=== PATIENT | male | born 1960 | race Caucasian/White ===

== ENCOUNTER 2020-08-22 02:43 | Outpatient (CLI) | payer BC, SELFPAY ==
[2020-08-22 19:51] LABS: SARS-CoV-2 RNA PCR Negative
== END 2020-08-22 02:44 | disposition home or self-care (01) ==
LOC: ANHCOVIDDT 02:43
PROVIDERS: PCP Family Medicine; Visit Provider Internal Medicine Gastroenterology
DX: Z01.812 Encounter for preprocedural laboratory examination (principal); Z20.828 Contact with and (suspected) exposure to other viral communicable diseases
CPT/HCPCS: 87635; C9803; U0003

== ENCOUNTER 2020-08-25 01:07 | Day surgery (SDC) | payer BC, SELFPAY ==
[2020-08-20 10:17] VITALS: BMI 25.8
--- NOTE | 2020-08-24 13:28 | WPDANESEPP ---
Anes - Eval Pre Procedure Procedure: Operation Date: 08/25/20 07:30 Proposed Procedures p Screening Colonoscopy - Dhiraj Angeles MD Date/Time: 08/24/20 13:28 Pre Op Diagnosis: Neoplasm Screening, Family Hx of Colon CA Patient Data Age: 60 Gender: M Height: 1.8 m Weight: 84 kg Allergies Allergy/AdvReac Type Severity Reaction Status Date / Time No Known Allergies Allergy Mild Verified 08/20/20 10:09 Home Medications Medication Instructions Recorded Confirmed Type No Home Medications 06/05/20 08/20/20 History Patient hx anesthesia problems: none Family hx anesthesia problems: none PMFSH Past Medical History Medical History Colon cancer screening Degenerative joint disease of knee Encounter for prostate cancer screening Encounter for wellness examination in adult Left knee pain Surgical History Surgical History H/O reconstruction of anterior cruciate ligament tear Family History Family History Other Family history of malignant neoplasm Social History Social History Smoking status: Former smoker Tobacco type: cigarettes Smoking end date: 10/10/03 Alcohol intake: current Substance use: never Substance use type: does not use Spiritual care concerns: No Exam Day of Procedure 08/24/20 13:28
[2020-08-25] MEDS: LACTATED RINGERS 1,000 ML 150 ML IV CONT (06:29)
[2020-08-25 06:30] VITALS: BP 135/91; PULSE 97; RESP 17; TEMP 36.6; O2SAT 97; BMI 26.2
--- NOTE | 2020-08-25 07:16 | P.PNAN_ITS ---
Anes - Initial Pre Proc Eval Procedure: Operation Date: 08/25/20 07:30 Proposed Procedures p Screening Colonoscopy - Dhiraj Angeles MD Date/Time: 08/25/20 07:16 Surgeon: Dhiraj Angeles MD Pre Op Diagnosis: Neoplasm Screening, Family Hx of Colon CA Patient Data Age: 60 Gender: M Height: 5 ft 11 in Weight: 85.2 kg Last Vital Signs Temp 97.9 F 08/25/20 06:30 Pulse 97 08/25/20 06:30 Resp 17 08/25/20 06:30 BP 135/91 H 08/25/20 06:30 Pulse Ox 97 08/25/20 06:30 Allergies Allergy/AdvReac Type Severity Reaction Status Date / Time No Known Allergies Allergy Mild Verified 08/25/20 06:21 Home Medications Medication Instructions Recorded Confirmed Type No Home Medications 06/05/20 08/25/20 History Patient hx anesthesia problems: none Family hx anesthesia problems: none PMFSH Past Medical History Medical History Colon cancer screening Degenerative joint disease of knee Encounter for prostate cancer screening Encounter for wellness examination in adult Left knee pain Surgical History Surgical History H/O reconstruction of anterior cruciate ligament tear Family History Family History Other Family history of malignant neoplasm Social History Social History Smoking status: Former smoker Tobacco type: cigarettes Smoking end date: 10/10/03 Alcohol intake: current Alcohol use details: WINE WITH DINNER Substance use: never Substance use type: does not use Living arrangements: with family Spiritual care concerns: No Anes - Eval Final PreProcedure Day of Procedure 08/25/20 07:16 Patient weight: normal Heart: regular rate and rhythm Lungs: clear to auscultation Airway: Mallampati scale class III Neurological: alert and oriented Last oral intake: >/= 8 hours ASA classification: II Emergent: no Anesthetic plan: proceed Anesthesia type and monitoring: general GIVS and standard monitoring Other findings: left upper eyelid slightly swollen Informed Consent: The patient's anesthetic plan and its attendant risks and tila efits were discussed with the patient/family/POA. Questions were solicited and answers provided to the satisfaction of the patient/family/POA.
--- NOTE | 2020-08-25 07:28 | WPDGICN ---
Assessment and Plan Assessment and plan (1) Family history of colon cancer in father: Code(s): Z80.0 - Family history of malignant neoplasm of digestive organs Status: Acute Assessment and Plan: Patient's father had colon cancer. His mother has had colon polyps. For this reason surveillance colonoscopy is advised now and at 5 year intervals in the future. High-fiber diet advised. Further recommendations will be given after endoscopy. GI Consult Note Consult date/time: 08/25/20 07:28 HPI: Vamsi Keita is a 60 year old male Seen in evaluation at the request of Dr. Jeronimo. Patient presents for screening colonoscopy. His current weight appetite bowel movements are normal. He denies any blood in his stools. He has no abdominal pain. Family history is significant his father had colon cancer. His mother had colon polyps. Review of Systems Review of Systems: All systems reviewed & are unremarkable except as noted in HPI and below PMFSH Past Medical History Medical History Colon cancer screening Degenerative joint disease of knee Encounter for prostate cancer screening Encounter for wellness examination in adult Left knee pain Surgical History Surgical History H/O reconstruction of anterior cruciate ligament tear Family History Family History Other Family history of malignant neoplasm Social History Social History Smoking status: Former smoker Tobacco type: cigarettes Smoking end date: 10/10/03 Alcohol intake: current Alcohol use details: WINE WITH DINNER Substance use: never Substance use type: does not use Living arrangements: with family Spiritual care concerns: No Meds Home Medications and Allergies Home Medications Medication Instructions Recorded Confirmed Type No Home Medications 06/05/20 08/25/20 History Allergies Allergy/AdvReac Type Severity Reaction Status Date / Time No Known Allergies Allergy Mild Verified 08/25/20 06:21 Vital Signs Vital Signs - 24 hr 08/25/20 06:30 Temperature 97.9 F Pulse Rate 97 Respiratory Rate 17 Blood Pressure 135/91 H Pulse Oximetry 97 Exam Narrative: Exam Narrative: Physical exam reveals Vital Signs to be stable. HEENT exam unremarkable. Lungs are clear to auscultation and percussion. Heart is without murmur or extra sounds. Abdominal exam bowel sounds are present soft nontender with no organomegaly. Digital external rectal exam is normal.
[2020-08-25 07:51] VITALS: BP 119/85; PULSE 84; RESP 22; O2SAT 97
[2020-08-25 08:01] VITALS: BP 130/87; PULSE 74; RESP 18; O2SAT 97
[2020-08-25 08:11] VITALS: BP 138/97; PULSE 75; RESP 20; O2SAT 98
== END 2020-08-25 08:36 | disposition home or self-care (01) ==
PROVIDERS: PCP Family Medicine; Visit Provider Internal Medicine Gastroenterology
PROC: 0DJD8ZZ Inspection of Lower Intestinal Tract, Via Natural or Artificial Opening Endoscopic (ICD-10-PCS; CPT 45378; principal; 2020-08-25 07:30)
DX: Z12.11 Encounter for screening for malignant neoplasm of colon (principal); K64.8 Other hemorrhoids; Z83.71 Family history of colonic polyps; Z80.0 Family history of malignant neoplasm of digestive organs; Z87.891 Personal history of nicotine dependence
CPT/HCPCS: 45378; J2704; J7120

== ENCOUNTER → 2021-10-02 01:08 | Outpatient (CLI) | payer BC, SELFPAY ==
[2021-10-02 19:19] LABS: SARS-CoV-2 RNA PCR Negative
== END ==
PROVIDERS: PCP Family Medicine; Visit Provider Nurse Practitioner Family
DX: R68.89 Other general symptoms and signs (principal); Z20.822 Contact with and (suspected) exposure to COVID-19
CPT/HCPCS: C9803; U0003; U0005

== ENCOUNTER 2023-08-19 09:43 | Outpatient (CLI) | payer MEDICARE, SELFPAY ==
--- NOTE | ~2023-08-19 | MR_ITS ---
MRI of the right knee Clinical history: Osteoarthritis Technique: Coronal proton density and proton density-weighted images, sagittal proton-density and T2 fat-sat images, and axial proton-density fat-saturated images were acquired. Findings: ACL is intact, with diffuse increased signal, compatible with mucoid degenerative change. P osterior cruciate ligament is intact. Medial collateral ligament and the lateral collateral ligament complex are intact. Popliteus tendon is intact. Possible horizontal tear of the anterior horn of the lateral meniscus. There is complex tearing of th e posterior horn and body of the medial meniscus, which are relatively diminutive. There is diffuse grade IV chondromalacia of the medial compartment. There is mild chondral thinning i n the lateral compartment. There is mild to moderate chondral malacia the medial patellar facet. Femo ral trochlear cartilage is preserved. Moderate tricompartment osteophytes are present. Extensor mechanism is intact. Moderate joint effusion present. No Ortega's cyst. Impression: Complex tearing of the posterior horn and body of the medial meniscus. Questionable horizontal tear of the anterior horn of the lateral meniscus. Mucoid degenerative change of the ACL. Moderate to advanced degenerative change of the medial compartment. Mild to moderate degenerative aleksandr nge of the lateral and patellofemoral compartment. Moderate joint effusion. Reviewed, dictated and finalized at location M. [facility]DER OPERATOR Impression: Complex tearing of the posterior horn and body of the medial meniscus. Questionable horizontal tear of the anterior horn of the lateral meniscus. Mucoid degenerative change of the ACL. Moderate to advanced degenerative change of the medial compartment. Mild to mod erate degenerative change of the lateral and patellofemoral compartment. Moderate joint effusion.
== END 2023-08-19 09:44 ==
LOC: GOSHIMG 09:44
PROVIDERS: PCP Family Medicine; Visit Provider Orthopaedic Surgery
DX: M17.11 Unilateral primary osteoarthritis, right knee (principal); M25.461 Effusion, right knee; S83.231A Complex tear of medial meniscus, current injury, right knee, initial encounter; X58.XXXA Exposure to other specified factors, initial encounter
CPT/HCPCS: 73721